=== PATIENT | male | born 1990 | race Caucasian/White ===

== ENCOUNTER 2025-04-29 15:30 | Outpatient (AMB) | payer OTHER, SELFPAY ==
--- NOTE | 2025-04-29 15:38 | A.OFFPC_ITS ---
Vital Signs 04/29/25 15:44 Height 5 ft 10.71 in Weight 221 lb 4 oz BMI 31.1 BP 136/72 Blood Pressure Location Rt brachial Position Sitting Pulse 73 Pulse Source Pulse Oximeter Temp 98.3 F Temp Source Oral Pulse Oximetry (%) 98 Oxygen Delivery Method Room Air Intake Visit Reasons: N/P Back pain Intake Note: Dffuse Back pain x few years. DOes radiate occasionally to his neck and butt area. Needs ortho referral Accompanied by: Spouse Allergies No Known Allergies Allergy (Verified 04/29/25 15:38) Tobacco use date assessed: 04/29/25 Dental Screening Dental Screen Date: 04/29/25 Did you have a dental visit in the last 12 months?: No HPI HPI Comments History of Present Illness Details Consent Patient was informed and verbally consented to the use of an ambient scribe for clinic note documentation during this visit. History of Present Illness The patient is a 35-year-old male presenting with back pain and associated symptoms. Herniated disc: - The patient reports back pain that wor sens when lying down and improves with activity, suggesting a herniated disc. - The pain radiates to the buttocks and legs, with occasional numbness, indicating sciatica. - The patient has a history of carrying heavy loads, which may have contributed to the condition. - The patient has been using ibuprofen f or pain management but is reluctant to use medications frequently. Obesity: - The patient's BMI is 31.1, classifying him as obese. 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 - The patient acknowledges the need to l ose weight and has been advised to engage in regular physical activity and consult a supervisor roller printing. Gingivitis: - The patient experiences dental pain an d swelling, attributed to gingivitis, but no active infection was observed during the examination. - The patient has a history of poor dent al hygiene, leading to recurrent issues. Sleep apnea (suspected): - The patient reports snoring and episod es of waking up at night, raising suspicion of sleep apnea. - A home sleep study was suggested to ev aluate for sleep apnea. Review of Systems - Musculoskeletal: Reports back pain rad iating to buttocks and legs, with o ccasional numbness. - Neurological: Denies headaches, dizzin ess, or balance issues. - Respiratory: Reports snoring and episo janel of waking up at night. - Dental: Reports dental pain and swelli ng, attributed to gingivitis. 10-point ROS reviewed and negative excep t as noted in HPI Past Medical History - History of carrying heavy loads, poten tially contributing to back issues. - History of poor dental hygiene leading to gingivitis. Health Maintenance - Referral to supervisor roller printing for dietary m anagement. - Referral to medical weight management clinic for obesity management. - Recommendation for regular physical ac tivity, 150 minutes per week. - Suggested home sleep study to evaluate for sleep apnea. Physical Exam General: Well-appearing, in no acute distress. Vital signs: Within normal limits. HEENT: Normocephalic, atraumatic. PERRLA, EOMI. Conjunctiva clear, sclera anicteric. Oropharynx clear, mucous membranes moist. TMs intact bilaterally. Gingivitis noted, no active infection observed. Neck: Supple, no lymphadenopathy, no thyromegaly, no JVD or carotid bruits. Reports occasional neck pain. Cardiovascular: RRR, normal S1/S2, no murmurs, rubs, or gallops. Peripheral pulses 2+ and symmetric. No edema. Respiratory: Lungs clear to auscultation bilaterally, no wheezes, rales, or rhonchi. Normal effort. Reports snoring and occasional waking during sleep. Abdomen: Soft, non-tender, non-distended. Normoactive bowel sounds. No hepatosplenomegaly, no masses. MSK: Full range of motion, no joint swelling or deformity. Normal gait. Reports lower back pain radiating to buttocks and legs, occasional numbness in legs. Skin: Warm, dry, intact. No rashes, lesions, or pallor. Neuro: Alert and oriented x3. Cranial nerves II-XII intact. Strength 5/5 throughout. Sensation intact. Reflexes 2+ symmetric. Normal coordination and gait. Psych: Appropriate mood and affect. Normal judgment and insight. Plan 1. Herniated Disc - Initiate conservative management with ibuprofen and muscle relaxants for pain relief. - Recommend physical therapy to improve symptoms and prevent progression. - Consider referral to pain management o r laser specialist if symptoms persist. 2. Obesity - Referral to supervisor roller printing and medical w eight management clinic for comprehensive evaluation and management. - Encourage regular physical activity, a iming for 150 minutes of moderate intensity exercise per week. 3. Gingivitis - Advise improved dental hygiene practic es to prevent progression. - Monitor for signs of infection and con printer apprentice antibiotics if necessary. 4. Sleep Apnea (Suspected) - Suggest a home sleep study to confirm diagnosis and guide management. Discussion Notes During the visit, we discussed the likely diagnosis of a herniated disc causing sciatica and the importance of conservative management, including physical therapy and medication. We also addressed obesity and its impact on back pain, recommending a referral to a supervisor roller printing and weight management clinic. The potential for sleep apnea was considered, and a home sleep study was suggested. We emphasized the need for improved dental hygiene to manage gingivitis and discussed the possibility of antibiotics if an infection develops. Follow-up was planned to review lab results and assess progress. Patient Instructions - Take ibuprofen as needed for pain, but avoid excessive use to prevent side effects. - Use muscle relaxants at night to help with back pain. - Engage in regular physical activity, a iming for 150 minutes per week. - Follow up with a supervisor roller printing and [facility] management clinic for dietary guidance. - Maintain good dental hygiene to preven t gingivitis. - Consider a home sleep study to evaluat e for sleep apnea. Medical Decision Making The patient's presentation suggests a herniated disc with sciatica, likely exacerbated by obesity. Conservative management with NSAIDs, muscle relaxants, and physical therapy was recommended to alleviate symptoms and prevent progression. Given the patient's BMI, referrals to a supervisor roller printing and weight management clinic were made to address obesity, which may contribute to back pain. The possibility of sleep apnea was considered due to reported snoring and nocturnal awakenings, warranting a home sleep study. Dental hygiene was emphasized to manage gingivitis, with antibiotics as a contingency for infectio n. Follow-up was planned to review lab results and reassess the treatment plan. Total time spent caring for the patient today was 30 minutes. This includes time spent before the visit reviewing the chart, time spent documenting, and time spent reviewing laboratory results, diagnostic imaging, medications, performing a medically necessary evaluation, counseling on diagnoses, care coordination, ordering appropriate tests, ordering appropriate medications. [facility] Medical History (Updated 04/29/25 @ 16:38 by Duke Scott MD) Cervicalgia Sciatica Chronic lower back pain Family History (Updated 04/29/25 @ 15:48 by Pamela Becerril CMA) Mother No problems noted. Father Heart attack Social History Housing: Apartment Patient Tobacco Use Status: Current everyday Tobacco user service: No Current occupational status: employed Cognitive needs: No Hearing needs: No Vision needs: No Questionnaire PHQ-9 Over the last 2 weeks, how often have you been bothered by any of the following problems? 1. Little interest or pleasure in doing things: not at all 2. Feeling down, depressed, or hopeless: not at all 3. Trouble falling or staying asleep, or sleeping too much: not at all 4. Feeling tired or having little energy: not at all 5. Poor appetite or overeating: not at all 6. Feeling bad about yourself - or that you are a failure or have let yourself or your family down: not at all 7. Trouble concentrating on things, such as reading the newspaper or watching television: not at all 8. Moving or speaking so slowly that other people could have noticed. Or the opposite - being so fidgety or restless that you have been moving around a lot more than usual: not at all 9. Thoughts that you would be better off or of hurting yourself in some way: not at all Total score: 0 Source: Developed by Drs. Jimmy Adamson, Jessica Vázquez, Alan Esqueda and colleagues, with an educational carlos from [employer]. Thrive Questionnaire Date Thrive assessed: 04/29/25 I am a: Patient What is your living situation today?: I have a steady place to live Within the past 12 months, did the food you bought not last and you didn't have the money to get more?: Never true Within the past 12 months, did you worry whether your food would run out before you got money to buy more?: Never true Do you have trouble paying for medicines?: No Do you have trouble getting transportation to medical appointments?: No Do you have trouble paying your heating and electricity bill?: Yes Do you have trouble taking care of your child, family member or friend?: No Do you have trouble with day-to-day activities such as bathing, preparing meals, shopping, managing finances, etc.?: No Are you currently unemployed and looking for a job?: No Are you interested in more education?: No Please select the resources that you would like help with: Utilities Currently or been in a relationship where the following occur: No concerns reported THRIVE Score: 1 AUDIT C Alcohol Use Questionnaire (AUDIT-C) 1. How often do you have a drink containing alcohol?: Monthly or less 2. How many drinks containing alcohol do you have on a typical day when you are drinking?: 1 or 2 3. How often do you have six or more drinks on one occasion?: Never Total Score: 1 AARON-7 AMB Questionnaire AARON-7 Date AARON - 7 assessed: 04/29/25 Feeling nervous, anxious, or on edge: 0 = Not at all Not being able to stop or control worryin = Not at all Worrying too much about different things: 0 = Not at all Trouble relaxin = Not at all Being so restless that it is hard to sit still: 0 = Not at all Becoming easily annoyed or irritable: 0 = Not at all Feeling afraid as if something awful might happen: 0 = Not at all Total AARON-7 score (0-4 normal; 5-9 mild; 10-14 moderate; 15-21 severe): 0 Source: Developed by Drs. Jimmy Adamson, Jessica Vázquez, Alan Esqueda and colleagues, with an educational carlos from [employer]. Physical exam (Primary Care) Vital Signs: Last Vital Signs Temp 98.3 F 04/29/25 15:44 Pulse 73 04/29/25 15:44 BP 136/72 04/29/25 15:44 Pulse Ox 98 04/29/25 15:44 Oxygen Delivery Method Room Air 04/29/25 15:44 BMI result Body Mass Index 31.1 Tobacco/Smoking Status: Tobacco use Status Tobacco use date assessed 04/29/25 04/29/25 15:40 Patient Tobacco Use Status Current everyday Tobacco 04/29/25 15:48 PHQ-9: PHQ-9 Score PHQ-9: Total score 0 04/29/25 15:40 Thrive Assessment: Date of Thrive Assessment Date Thrive assessed 04/29/25 04/29/25 15:40 Currently or been in a relationship where the following occur: No concerns reported Coding Level of Care Code New Pt Level 4 (15976) Diagnoses Chronic lower back pain M54.50; G89.29 Sciatica M54.30 Cervicalgia M54.2 Class 1 obesity E66.811 Snoring R06.83 Fatigue R53.83 Nicotine use Z72.0 Vapes nicotine containing substance Z72.0 Gingivitis K05.10 Assessment & Plan Assessment & Plan (1) Chronic lower back pain: Code(s): M54.50 - Low back pain, unspecified; G89.29 - Other chronic pain Category: Medical (2) Sciatica: Code(s): M54.30 - Sciatica, unspecified side Category: Medical (3) Cervicalgia: Code(s): M54.2 - Cervicalgia Category: Medical (4) Class 1 obesity: Code(s): E66.811 - Obesity, class 1 (5) Snoring: Code(s): R06.83 - Snoring (6) Fatigue: Code(s): R53.83 - Other fatigue (7) Nicotine use: Code(s): Z72.0 - Tobacco use (8) Vapes nicotine containing substance: Code(s): Z72.0 - Tobacco use (9) Gingivitis: Code(s): K05.10 - Chronic gingivitis, plaque induced Plan Orders: Orders Comprehensive Met. Panel Today Z13.9 - Encounter for screening, unspecified Hemoglobin A1c Today Z13.9 - Encounter for screening, unspecified Magnesium Today Z13.9 - Encounter for screening, unspecified TSH reflex Free T4 Today Z13.9 - Encounter for screening, unspecified UA CC w/rflx Micro + Cult Today Z13.9 - Encounter for screening, unspecified Vitamin D 1,25 dihydroxy Today Z13.9 - Encounter for screening, unspecified Vitamin B12 and Folate Today Z13.9 - Encounter for screening, unspecified Complete Blood Count Auto Diff Today Z13.9 - Encounter for screening, unspecified Hepatitis B Surface Antibody Today Z13.9 - Encounter for screening, unspecified Hepatitis B Surface Antigen Today Z13.9 - Encounter for screening, unspecified Hepatitis C Antibody Today Z13.9 - Encounter for screening, unspecified HIV Ab/Ag Today Z13.9 - Encounter for screening, unspecified Lipid Panel Today Z13.9 - Encounter for screening, unspecified PT Evaluation and Treatment Today G89.29 - Other chronic pain, M54.30 - Sciatica, unspecified side, M54.50 - Low back pain, unspecified Medications: New cyclobenzaprine 5 mg PO BEDTIME 20 tabs 0RF M54.2 - Cervicalgia acetaminophen ER 650 mg PO Q12H 30 tabs 0RF G89.29 - Other chronic pain, M54.50 - Low back pain, unspecified
[2025-04-29 15:44] VITALS: BP 136/72; PULSE 73; TEMP 36.8; O2SAT 98; BMI 31.1
== END 2025-04-29 16:38 | disposition home or self-care (01) ==
LOC: HO.HMCFMS 15:31
PROVIDERS: Visit Provider Student in an Organized Health Care Education/Training Program
DX: M54.50 Low back pain, unspecified (principal); G89.29 Other chronic pain; M54.30 Sciatica, unspecified side; M54.2 Cervicalgia; E66.811 Obesity, class 1; R06.83 Snoring; R53.83 Other fatigue; Z72.0 Tobacco use; K05.10 Chronic gingivitis, plaque induced